=== PATIENT | male | born 1995 | race Caucasian/White ===

== ENCOUNTER 2024-09-15 12:29 | Emergency (ER) | payer MEDICAID ==
[~2024-09-15] VITALS: Ht 185.4 cm; Wt 127.3 kg
[2024-09-15] MEDS: normal saline 1000ml 1,000 ML IV ONE ×2 (14:11→15:41)
[2024-09-15] MEDS: ondansetron/PF 4mg/2ml inj IV ONE (14:16)
[2024-09-15 14:20] VITALS: TEMP 96
[2024-09-15 14:27] LABS: BASOPHILS % (AUTO) 0.1 % (0-1); EOSINOPHILS % (AUTO) 0 % (0-6); HEMATOCRIT 47.2 % (42.0-52.0); LYMPHOCYTES # (AUTO) 0.7 X10'3 (1.1-4.8); LYMPHOCYTES % (AUTO) 6.2 % (21-51); MEAN CORPUSCULAR HEMOGLOBIN 29.7 PG (27.0-31.0); MEAN CORPUSCULAR HGB CONC 33.8 g/dL (33.0-36.5); MONOCYTES # (AUTO) 0.4 X10'3 (0-0.9); MONOCYTES % (AUTO) 3.6 % (2-12); NEUTROPHILS # (AUTO) 10.6 X10'3 (1.8-7.7); NEUTROPHILS % (AUTO) 90.1 % (42-75); PLATELET COUNT 393 X10'3 (140-440); RED BLOOD COUNT 5.37 X10'6 (4.70-6.10); RED CELL DISTRIBUTION WIDTH 13.4 % (11.5-14.5); WHITE BLOOD COUNT 11.7 X10'3 (4.5-11.0)
[2024-09-15 14:35] LABS: D-DIMER < 0.19 MG/L FEU (0-0.50)
[2024-09-15 14:36] LABS: ALANINE AMINOTRANSFERASE 83 U/L (12-78); ALBUMIN 4.2 G/DL (3.4-5.0); ALBUMIN/GLOBULIN RATIO 1.1 (1.1-1.5); ALKALINE PHOSPHATASE 115 IU/L (46-116); ANION GAP 6 (8-16); ASPARTATE AMINO TRANSFERASE 40 U/L (10-37); BILIRUBIN,TOTAL 0.7 MG/DL (0.1-1.0); BLOOD UREA NITROGEN 12 MG/DL (7-18); CALCIUM 9.4 MG/DL (8.5-10.1); CHLORIDE 105 MMOL/L (99-107); CREATININE 0.75 MG/DL (0.60-1.10); GLUCOSE 128 MG/DL (70-104); POTASSIUM 3.8 MMOL/L (3.5-5.1); SODIUM 139 MMOL/L (135-145); TOTAL CARBON DIOXIDE 28.1 MMOL/L (24-32); TOTAL PROTEIN 7.9 G/DL (6.4-8.2); eCRCL 169 ML/MIN; eGFR > 90 ML/MIN
[2024-09-15 14:44] LABS: PRO BRAIN NATRIURETIC PEPTIDE 46 PG/ML (0-125)
[2024-09-15] MEDS ORDERED: ONDA-245 PO (16:03)
[2024-09-15] MEDS ORDERED: MECL-302 PO (16:03)
[2024-09-15 17:07] VITALS: BP 134/83; PULSE 62; RESP 15; O2SAT 99
== END 2024-09-15 17:09 | disposition home or self-care (01) ==
LOC: ER 12:30
DX: I10 Essential (primary) hypertension (principal); R11.2 Nausea with vomiting, unspecified; R42 Dizziness and giddiness; Z79.899 Other long term (current) drug therapy
CPT/HCPCS: 36415; 71045; 80053; 83880; 84484; 85025; 85379; 93005; 96361; 96374; 99285; J2405; J7030